=== PATIENT | female | born 1955 | race Caucasian/White ===

== ENCOUNTER 2024-03-08 10:01 | Emergency (ER) | payer MEDICARE, OTHER ==
[2024-03-08] MEDS: Fluorescein 1 MG Ophth Strip EYERT ONE (13:05)
[2024-03-08] MEDS: Proparacaine 0.5% Ophth Soln 15 ML Bottle EYERT ONE (14:23)
== END 2024-03-08 15:30 | disposition home or self-care (01) ==
LOC: JD.ED 10:01
DX: S05.01XA Injury of conjunctiva and corneal abrasion without foreign body, right eye, initial encounter (principal); Z79.899 Other long term (current) drug therapy; X58.XXXA Exposure to other specified factors, initial encounter
CPT/HCPCS: 99283; J3490